=== PATIENT | male | born 2000 | race Caucasian/White ===

== ENCOUNTER 2023-12-11 09:48 | Emergency (ER) | payer BC, SELFPAY ==
[2023-12-11 09:52] VITALS: BP 132/75; PULSE 105; RESP 18; TEMP 36.7; O2SAT 97; BMI 23.4
--- NOTE | 2023-12-11 10:09 | CRLHL7_ITS ---
For Patients: As a result of the Century Cures Act, medical imaging exams and procedure reports are released immediately into your electronic medical record. You may view this report before your referring provider. If you have questions, please contact your health care provider. INDICATION: PERIANAL ABSCESS NOTICED ON 12/07/23 TECHNIQUE: CT of the pelvis was obtained with 94 mL of Isovue 370 intravenous contrast. Please note that all CT scans at this facility use dose modulation, iterative reconstruction, and/or weight-based dosing when appropriate to reduce radiation dose to as low as reasonably achievable. COMPARISON: None. FINDINGS: Gastrointestinal tract: 2.3 x 1.6 x 3.3 centimeter thick-walled rim enhancing collection is seen to the left aspect of the anus in the perineum (, 4/). Small to moderate stool burden. No evidence of acute appendicitis. No evidence of bowel obstruction. Peritoneal cavity: Normal. Bladder: Normal. Pelvic organs: Normal. Vasculature: Normal. Lymph nodes: Normal. Abdominal wall: Normal. Musculoskeletal: Normal. IMPRESSION: 2.3 x 1.6 x 3.3 centimeter thick-walled rim enhancing collection is seen to the left aspect of the anus in the perineum; this is compatible with a perianal abscess. Please note that all CT scans at this facility use dose modulation, iterative reconstruction, and/or weight-based dosing when appropriate to reduce radiation dose to as low as reasonably achievable. Dictated by John Hernández MD @ 12/11/2023 11:01:41 AM (Electronically Signed)
--- NOTE | 2023-12-11 10:15 | ED_ITS ---
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 He has been on Augmentin for 3 days. He reports it is getting worse and more painful. He is able to still have a bowel movement. He is generally quite healthy. Related Data Home Medications ?Medication ?Instructions ?Recorded ?Confirmed amoxicillin 875 mg-potassium 1 tab PO BID 12/11/23 12/11/23 clavulanate 125 mg tablet duloxetine 60 mg capsule,delayed 60 mg PO DAILY 12/11/23 12/11/23 release ibuprofen 12/11/23 Allergies Allergy/AdvReac Type Severity Reaction Status Date / Time No Known Drug Allergies Allergy Verified 12/11/23 10:46 Review of Systems Status of ROS: Reports: 6 or more systems reviewed and unremarkable except as noted in History and below PFSH PFSH Social History Smoking Status: Never smoker Do you use any of these nicotine containing products: None How often do you have a drink containing alcohol: 2-4 times a month AUDIT-C Alcohol total score: 2 Non-prescribed substance use: denies use Exam Narrative: Exam Narrative: Objective: Patient is afebrile He has no apparent distress Anal exam shows a low left-sided perianal abscess that is reddened and warm I am able to feel it a little bit more superiorly around the perianal area and into the lower perineum. He is pretty tender but not exquisitely tender. He reports he is able have a bowel moved out difficulty. Const: Vital Signs, click to edit/add: Vital Signs - 24 hr 12/11/23 09:52 12/11/23 11:50 Temperature 98.1 F Pulse Rate [Left P ulse Oximeter] 105 H 91 Respiratory Rate 18 16 Blood Pressure [Ri ght Upper Arm] 132/75 119/58 L Pulse Oximetry 97 99 Oxygen Delivery Me thod Room Air Room Air Course Vital Signs Vital signs: Initial Vital Signs Temperature 98.1 F 12/11/23 09:52 Temperature Source Oral 12/11/23 09:52 Pulse Rate 105 H 12/11/23 09:52 Respiratory Rate 18 12/11/23 09:52 Blood Pressure 132/75 12/11/23 09:52 Blood Pressure Mean 94 12/11/23 09:52 Blood Pressure Position Sitting 12/11/23 09:52 Pulse Oximetry 97 12/11/23 09:52 Oxygen Delivery Method Room Air 12/11/23 09:52 Vital Signs Temperature 98.1 F 12/11/23 09:52 Pulse Rate 105 H 12/11/23 09:52 Respiratory Rate 18 12/11/23 09:52 Blood Pressure 132/75 12/11/23 09:52 Pulse Oximetry 97 12/11/23 09:52 Oxygen Delivery Method Room Air 12/11/23 09:52 Temperature 98.1 F 12/11/23 09:52 Pulse Rate 91 12/11/23 11:50 Respiratory Rate 16 12/11/23 11:50 Blood Pressure 119/58 L 12/11/23 11:50 Pulse Oximetry 99 12/11/23 11:50 Oxygen Delivery Method Room Air 12/11/23 11:50 Medications Administered Medications: Discontinued Medications Generic Name Dose Route Start Last Admin Trade Name Freq PRN Reason Stop Dose Admin Hydrocodone Bitart/Acetaminophen 1 tab 12/11/23 11:54 12/11/23 12:06 Hydrocodone/Acetamin 7.5-325 Tablet PO 12/11/23 11:55 1 tab ONCE ONE Administration Sodium Chloride 500 mls @ 500 mls/hr 12/11/23 10:09 12/11/23 11:50 0.9 % Sodium Chloride 500 Ml IV 12/11/23 11:08 Infused .Q1H ONE Infusion Morphine Sulfate 4 mg 12/11/23 11:23 12/11/23 11:30 Morphine 4 Mg/Ml Inj IVP 12/11/23 11:24 4 mg ONCE ONE Administration Medical Decision Making MDM Narrative Medical decision making narrative: 22-year-old male with a perianal abscess. My concern is that it seems fairly extensive and a little bit longer than just a superficial abscess. In its location I discussed with General surgery Dr. Denton who agreed that a CT scan of the pelvis would be appropriate to determine location size. Will also check CBC and start some IV fluid. Disposition pending findings on CT regarding operative intervention verses I&D in the ER. Procedure: 11:51 a.m.: After informed consent sterile scrub 1% xylocaine used to inject the perianal abscess was noted on CT scan. After consulting with Dr. Denton general surgery was felt that we could do that in the ED. The patient had a area of tenderness and swelling in his left perianal area that was injected with lidocaine after sterile scrub, a 11 blade was used to incise in an elliptical fashion the abscess and it was packed with a quarter-inch iodoform gauze. The patient tolerated this actually amazingly well. He has additional Augmentin at home. He is up-to-date immunizations by history. He can remove the iodoform in the next 2-3 days if he has difficulty can come back here will keep the area dry for the next couple of days he will get ABD pad for packing. And he can follow up in the ED if there is increasing problems concerns or difficulty. He was comfortable plan. Lab Data Labs: Lab Results 12/11/23 Range/Units 10:25 WBC 11.36 H (4.50-11.00) K/uL RBC 5.04 (4.30-5.90) m/uL Hgb 15.3 (13.5-17.5) gm/dL Hct 45.5 (37.0-53.0) % MCV 90 (80-100) fL MCH 30 (26-34) pg MCHC 34 (32-36) gm/dL RDW Coeff of Fran 11.7 (11.5-15.5) % Plt Count 209 (140-440) K/uL Neut % (Auto) 79.3 H (42.0-72.0) % Lymph % (Auto) 12.1 L (20-44) % [place] % (Auto) 7.7 (0.0-11.0) % Eos % (Auto) 0.5 (0.0-7.0) % Baso % (Auto) 0.3 (0.0-3.0) % Neut # (Auto) 9.00 H (1.7-7.0) K/uL Lymph # (Auto) 1.40 (0.90-2.90) K/uL [place] # (Auto) 0.90 (0.00-0.90) K/UL Eos # (Auto) 0.10 (0.00-0.50) K/uL Baso # (Auto) 0.00 (0.00-0.30) K/uL Abs Immat Gran (auto) 0.00 (0.00-0.30) K/uL Imm/Tot Granulo (auto) 0.1 % Discharge Plan Discharge Clinical Impression: Abscess, perirectal Patient Disposition: Home w/ Parent or Adult Condition: Improved Additional Instructions: Continue Augmentin, will give you additional pain medication before your discharge today. May use Advil or Tylenol and follow up. Remove the packing in 2-3 days. It may fall out on its own. Keep the area dry for the next 24 hours then may shower, return to ED if problems or concerns. Activity Level: Light activity Discharge Diet: Regular Prescriptions: No Action duloxetine 60 mg capsule,delayed release(DR/EC) 60 mg PO DAILY amoxicillin-pot clavulanate 875-125 mg tablet 1 tab PO BID ibuprofen Follow Up/Referrals: Provider,Not a Local [Primary Care Provider] - Stand Alone Forms: [employer] Info Instructions
[2023-12-11 10:32] LABS: Basophils Percent Auto 0.3 % (0.0-3.0); Eosinophils Percent Auto 0.5 % (0.0-7.0); Hematocrit 45.5 % (37.0-53.0); Hemoglobin* 15.3 gm/dL (13.5-17.5); Immature Granulocytes Pct Auto 0.1 %; Lymphocytes Percent Auto 12.1 % (20-44); Mean Corpuscular HGB Conc 34 gm/dL (32-36); Mean Corpuscular Hemoglobin 30 pg (26-34); Mean Corpuscular Volume 90 fL (80-100); Monocytes Percent Auto 7.7 % (0.0-11.0); Neutrophils Percent Auto 79.3 % (42.0-72.0); Platelet Count* 209 K/uL (140-440); RDW Coefficient of Variation % 11.7 % (11.5-15.5); Red Blood Count 5.04 m/uL (4.30-5.90); White Blood Count* 11.36 K/uL (4.50-11.00)
[2023-12-11 10:39] LABS: Slide Review Reflex No
[2023-12-11] MEDS: 0.9 % SODIUM CHLORIDE 500 ML 500 ML IV (10:52)
[2023-12-11] MEDS: MORPHINE 4 MG/ML INJ IVP (11:30)
[2023-12-11 11:50] VITALS: BP 119/58; PULSE 91; RESP 16; O2SAT 99
[2023-12-11] MEDS: HYDROCODONE/ACETAMIN 7.5-325 TABLET 1 TAB PO (12:06)
== END 2023-12-11 12:11 | disposition home or self-care (01) ==
PROVIDERS: Emergency Provider Family Medicine
DX: K61.0 Anal abscess (principal)
CPT/HCPCS: 46050; 36415; 72193; 85025; 96374; 99284; A9270; J2270; J7030; Q9967